=== PATIENT | female | born 1995 | race Caucasian/White ===

== ENCOUNTER → 2020-04-27 | Outpatient (CLI) | payer OTHER | LOC: EMI 08:00 | DX: M25.362 Other instability, left knee (principal); M23.8X2 Other internal derangements of left knee; S83.242A Other tear of medial meniscus, current injury, left knee, initial encounter; M25.462 Effusion, left knee; X58.XXXA Exposure to other specified factors, initial encounter | CPT/HCPCS: 73721 ==